=== PATIENT | female | born 2000 | race Caucasian/White ===

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

== ENCOUNTER 2024-06-13 04:31 | Emergency (ER) | payer BC ==
[2024-06-13 04:39] VITALS: TEMP 97.9
--- NOTE | 2024-06-13 04:46 | ED ---
Abdominal Pain HPI <ManiMike - Last Filed: 06/13/24 09:33> - General Source: patient, RN notes reviewed, old records reviewed Mode of arrival: ambulatory Limitations: no limitations - History of Present Illness MD Complaint: abdominal pain -: days(s) Location: diffuse, suprapubic Radiation: suprapubic Migration to: suprapubic Severity: moderate Severity scale (1-10): 6 Quality: sharp Consistency: intermittent Improves With: nothing Worsens With: nothing Associated Symptoms: nausea Treatments Prior to Arrival: other (0) <Miguel Ángel Campbell - Last Filed: 06/23/24 01:53> - General Chief Complaint: Abdominal Pain Stated Complaint: Abdominal Pain Time Seen by Provider: 06/13/24 04:39 - History of Present Illness Initial Comments: This is a 24-year-old female to ER for evaluation of abdominal pain today abdominal pain and constipation (Miguel Ángel Campbell) - Related Data Previous Rx's Medication Instructions Recorded Dicyclomine [Bentyl] 10 mg PO TID PRN 5 Days #15 capsule 06/13/24 Allergies Allergy/AdvReac Type Severity Reaction Status Date / Time No Known Allergies Allergy Verified 06/13/24 04:35 Review of Systems ROS Other: All systems not noted in ROS Statement are negative. <ManiMike - Last Filed: 06/13/24 09:33> ROS Other: All systems not noted in ROS Statement are negative. <Miguel Ángel Campbell - Last Filed: 06/23/24 01:53> ROS Statement: Those systems with pertinent positive or pertinent negative responses have been documented in the HPI. Past Medical History Past Medical History: No Reported History Past Surgical History: No Surgical Hx Reported Past Psychological History: No Psychological Hx Reported Smoking Status: Never smoker Past Alcohol Use History: Occasional Past Drug Use History: None Reported <Miguel Ángel Campbell - Last Filed: 06/23/24 01:53> General Exam Limitations: no limitations General appearance: alert, in no apparent distress Head exam: Present: atraumatic, normocephalic, normal inspection Eye exam: Present: normal appearance, PERRL, EOMI. Absent: scleral icterus, conjunctival injection, periorbital swelling ENT exam: Present: normal exam, mucous membranes moist Neck exam: Present: normal inspection. Absent: tenderness, meningismus, lymphadenopathy Respiratory exam: Present: normal lung sounds bilaterally. Absent: respiratory distress, wheezes, rales, rhonchi, stridor Cardiovascular Exam: Present: regular rate, normal rhythm, normal heart sounds. Absent: systolic murmur, diastolic murmur, rubs, gallop, clicks GI/Abdominal exam: Present: soft, normal bowel sounds. Absent: distended, tenderness, guarding, rebound, rigid Extremities exam: Present: normal inspection, full ROM, normal capillary refill. Absent: tenderness, pedal edema, joint swelling, calf tenderness Back exam: Present: normal inspection Neurological exam: Present: alert, oriented X3, CN II-XII intact Psychiatric exam: Present: normal affect, normal mood Skin exam: Present: warm, dry, intact, normal color. Absent: rash <Miguel Ángel Campbell - Last Filed: 06/23/24 01:53> Course <Miguel Ángel Campbell - Last Filed: 06/23/24 01:53> Vital Signs 06/13/24 06/13/24 06/13/24 04:35 06:15 07:00 Temperature 97.9 F Pulse Rate 98 66 65 Respiratory 18 16 16 Rate Blood Pressure 149/78 125/71 127/66 O2 Sat by Pulse 100 100 100 Oximetry 06/13/24 09:45 Temperature Pulse Rate 64 Respiratory 18 Rate Blood Pressure 128/84 O2 Sat by Pulse 97 Oximetry - Reevaluation(s) Reevaluation #1: 06/13/24 04:46 Medical records reviewed (Miguel Ángel Campbell) Reevaluation #2: Patient symptoms improved here in the ER (Miguel Ángel Campbell) Reevaluation #3: Patient informed of results and questions answered (Miguel Ángel Campbell) Reevaluation #4: Was pt. sent in by a medical professional or institution (, PA, COLLARETTE SEPARATOR, urgent care, hospital, or correction...) When possible be specific @ -no Did you speak to anyone other than the patient for history (EMS, parent, family, police, friend...)? What history was obtained from this source @ -no Did you review nursing and triage notes (agree or disagree)? Why? @ -agree Are old charts reviewed (outside hosp., previous admission, EMS record, old EKG, old radiological studies, urgent care reports/EKG's, correction records)? Report findings @ -yes Differential Diagnosis (chest pain, altered mental status, abdominal pain women, abdominal pain men, vaginal bleeding, weakness, fever, dyspnea, syncope, headache, dizziness, GI bleed, back pain, seizure, CVA, palpatations, mental health, musculoskeletal)? @ -prior EKG interpreted by me (3pts min.). @ -no X-rays interpreted by me (1pt min.). @ -no CT interpreted by me (1pt min.). @ -Yes negative for acute disease U/S interpreted by me (1pt. min.). @ -Yes negative for acute disease What testing was considered but not performed or refused? (CT, X-rays, U/S, labs)? Why? @ -none What meds were considered but not given or refused? Why? @ -none Did you discuss the management of the patient with other professionals (professionals i.e. , PA, COLLARETTE SEPARATOR, lab, RT, psych nurse, social service manager, treating inspector, teacher, information security officer, community case manager)? Give summary @ -no Was smoking cessation discussed for >3mins.? @ -no Was critical care preformed (if so, how long)? @ -no Were there social determinants of health that impacted care today? How? (Homelessness, low income, unemployed, alcoholism, drug addiction, transportation, low edu. Level, literacy, decrease access to med. care, [facility], rehab)? @ -none Was there de-escalation of care discussed even if they declined (Discuss DNR or withdrawal of care, Hospice)? DNR status @ -no What co-morbidities impacted this encounter? (DM, HTN, Smoking, COPD, CAD, Cancer, CVA, ARF, Chemo, Hep., AIDS, mental health diagnosis, sleep apnea, morbid obesity)? @ -none Was patient admitted / discharged? Hospital course, mention meds given and route, prescriptions, significant lab abnormalities, going to OR and other pertinent info. @ - 24 Female to ER for evaluation abdominal pain no acute findings here in the ER can be discharged home Discharge Undiagnosed new problem with uncertain prognosis? @ -no Drug Therapy requiring intensive monitoring for toxicity (Heparin, Nitro, Insulin, Cardizem)? @ -no Were any procedures done? @ -no Diagnosis/symptom? @ -Abdominal pain Acute, or Chronic, or Acute on Chronic? @ -Acute Uncomplicated (without systemic symptoms) or Complicated (systemic symptoms)? @ -Complicated Side effects of treatment? @ -no Exacerbation, Progression, or Severe Exacerbation? @ -exacerbation Poses a threat to life or bodily function? How? (Chest pain, [place], [place], pneumonia, PE, COPD, DKA, ARF, appy, cholecystitis, CVA, Diverticulitis, Homicidal, Suicidal, threat to staff... and all critical care pts) @ -no (Miguel Ángel Campbell) Reevaluation #5: Differential Abdominal Pain Men: Appendicitis, cholecystitis, diverticulosis, ischemic bowel, pancreatitis, hepatitis, UTI, gastroenteritis, AAA, incarcerated hernia, bowel obstruction, constipation, inflammatory bowel, hepatitis, peptic ulcer disease, splenic infarction, perforated viscus, testicular torsion, this is not meant to be an all-inclusive list (Miguel Ángel Campbell) Medical Decision Making - Lab Data Result diagrams: 06/13/24 04:58 06/13/24 04:58 <Mike Singleton - Last Filed: 06/13/24 09:33> - Lab Data Result diagrams: 06/13/24 04:58 06/13/24 04:58 - Radiology Data Radiology results: pending (Ultrasound pelvis), report reviewed (CT of the abdomen pelvis negative for acute disease), image reviewed <Miguel Ángel Campbell - Last Filed: 06/23/24 01:53> - Medical Decision Making Patient signed out to me pending results of ultrasound. Patient presents with upper abdominal discomfort. Laboratory studies unremarkable. This includes negative test and negative urine. Ultrasound of the abdomen including gallbladder unremarkable. Transvaginal ultrasound does reveal an ovarian cyst on the right side with no evidence of torsion no other obvious other changes. Active patient. She is feeling improved. I believe it is reasonable for her to be discharged home this time. She was in agreement this plan. Diagnosis is abdominal pain of unknown etiology. Strict return precautions discussed. I will provide the patient with a prescription for starter pack of Zofran, Bentyl. I instructed the patient to follow up with their PCP in the next 1-3 days. I provided contact information for follow up with gastroenterology. I explained that the patient should return to the emergency department if they experience any worsening symptoms. Strict return precautions were discussed with the patient. The patient expressed understanding of these instructions. I answered all questions that the patient had. The patient was discharged home in good condition with their prescriptions and follow up information. Diagnosis/symptom? @ -Abdominal pain of unknown etiology Acute, or Chronic, or Acute on Chronic? @ -Acute Uncomplicated (without systemic symptoms) or Complicated (systemic symptoms)? @ -Uncomplicated Side effects of treatment? @ -None Exacerbation, Progression, or Severe Exacerbation] @ -No Poses a threat to life or bodily function? @ -Unlikely (Mike Singleton) 24 Female to ER for evaluation abdominal pain no acute findings here in the ER can be discharged home (Miguel Ángel Campbell) - Lab Data Lab Results 06/13/24 06/13/24 06/13/24 Range/Units 04:58 04:58 06:10 WBC 8.3 (3.8-10.6) k/uL RBC 4.64 (3.80-5.40) m/uL Hgb 14.3 (11.4-16.0) gm/dL Hct 43.4 (34.0-46.0) % MCV 93.5 (80.0-100.0) fL MCH 30.9 (25.0-35.0) pg MCHC 33.0 (31.0-37.0) g/dL RDW 13.2 (11.5-15.5) % Plt Count 239 (150-450) k/uL MPV 7.7 Neutrophils % 61 % Lymphocytes % 30 % Monocytes % 5 % Eosinophils % 2 % Basophils % 0 % Neutrophils # 5.1 (1.3-7.7) k/uL Lymphocytes # 2.5 (1.0-4.8) k/uL Monocytes # 0.4 (0-1.0) k/uL Eosinophils # 0.2 (0-0.7) k/uL Basophils # 0.0 (0-0.2) k/uL Sodium 133 L (137-145) mmol/L Potassium 3.9 (3.5-5.1) mmol/L Chloride 104 (98-107) mmol/L Carbon Dioxide 22 (22-30) mmol/L Anion Gap 7 mmol/L BUN 13 (7-17) mg/dL Creatinine 0.81 (0.52-1.04) mg/dL Est GFR (CKD-EPI)AfAm >90 (>60 ml/min/1.73 sqM) Est GFR (CKD-EPI)NonAf >90 (>60 ml/min/1.73 sqM) Glucose 101 H (74-99) mg/dL Calcium 9.5 (8.4-10.2) mg/dL Phosphorus 4.2 (2.5-4.5) mg/dL Magnesium 1.8 (1.6-2.3) mg/dL Total Bilirubin 0.7 (0.2-1.3) mg/dL AST 22 (14-36) U/L ALT 17 (4-34) U/L Alkaline Phosphatase 58 (38-126) U/L Total Protein 6.9 (6.3-8.2) g/dL Albumin 4.4 (3.5-5.0) g/dL Amylase 46 (30-110) U/L Lipase 96 (23-300) U/L Urine Color Urine Appearance (Clear) Urine pH (5.0-8.0) Ur Specific Collison (1.001-1.035) Urine Protein (Negative) Urine Glucose (UA) (Negative) Urine Ketones (Negative) Urine Blood (Negative) Urine Nitrite (Negative) Urine Bilirubin (Negative) Urine Urobilinogen (<2.0) mg/dL Ur Leukocyte Esterase (Negative) Urine HCG, Qual Not Detected (Not Detectd) 06/13/24 Range/Units 06:14 WBC (3.8-10.6) k/uL RBC (3.80-5.40) m/uL Hgb (11.4-16.0) gm/dL Hct (34.0-46.0) % MCV (80.0-100.0) fL MCH (25.0-35.0) pg MCHC (31.0-37.0) g/dL RDW (11.5-15.5) % Plt Count (150-450) k/uL MPV Neutrophils % % Lymphocytes % % Monocytes % % Eosinophils % % Basophils % % Neutrophils # (1.3-7.7) k/uL Lymphocytes # (1.0-4.8) k/uL Monocytes # (0-1.0) k/uL Eosinophils # (0-0.7) k/uL Basophils # (0-0.2) k/uL Sodium (137-145) mmol/L Potassium (3.5-5.1) mmol/L Chloride (98-107) mmol/L Carbon Dioxide (22-30) mmol/L Anion Gap mmol/L BUN (7-17) mg/dL Creatinine (0.52-1.04) mg/dL Est GFR (CKD-EPI)AfAm (>60 ml/min/1.73 sqM) Est GFR (CKD-EPI)NonAf (>60 ml/min/1.73 sqM) Glucose (74-99) mg/dL Calcium (8.4-10.2) mg/dL Phosphorus (2.5-4.5) mg/dL Magnesium (1.6-2.3) mg/dL Total Bilirubin (0.2-1.3) mg/dL AST (14-36) U/L ALT (4-34) U/L Alkaline Phosphatase (38-126) U/L Total Protein (6.3-8.2) g/dL Albumin (3.5-5.0) g/dL Amylase (30-110) U/L Lipase (23-300) U/L Urine Color Colorless Urine Appearance Clear (Clear) Urine pH 6.0 (5.0-8.0) Ur Specific Collison 1.006 (1.001-1.035) Urine Protein Negative (Negative) Urine Glucose (UA) Negative (Negative) Urine Ketones Negative (Negative) Urine Blood Negative (Negative) Urine Nitrite Negative (Negative) Urine Bilirubin Negative (Negative) Urine Urobilinogen <2.0 (<2.0) mg/dL Ur Leukocyte Esterase Negative (Negative) Urine HCG, Qual (Not Detectd) Disposition Is patient prescribed a controlled substance at d/c from ED?: No Time of Disposition: 09:30 <iMke Singleton - Last Filed: 06/13/24 09:33> <Miguel Ángel Campbell - Last Filed: 06/23/24 01:53> Clinical Impression: Abdominal pain of unknown etiology Disposition: HOME SELF-CARE Condition: Good Instructions (If sedation given, give patient instructions): Abdominal Pain (ED) Prescriptions: Dicyclomine [Bentyl] 10 mg PO TID PRN 5 Days #15 capsule PRN Reason: Pain Referrals: Glapinski,Bean, DO [Primary Care Provider] - 1-2 days Angela Mcclain MD [STAFF PHYSICIAN] - 1-2 days
[2024-06-13] MEDS: SODIUM CHLORIDE 0.9% 1,000 ML IV STA (05:15)
[2024-06-13 05:23] LABS: Basophils % (A) 0 %; Eosinophils # (A) 0.2 k/uL (0-0.7); Eosinophils % (A) 2 %; HCT 43.4 % (34.0-46.0); HGB 14.3 gm/dL (11.4-16.0); Lymphocytes # (A) 2.5 k/uL (1.0-4.8); Lymphocytes % (A) 30 %; MCH 30.9 pg (25.0-35.0); MCV 93.5 fL (80.0-100.0); Mean Platelet Volume 7.7; Monocytes # (A) 0.4 k/uL (0-1.0); Monocytes % (A) 5 %; Neutrophils # (A) 5.1 k/uL (1.3-7.7); Neutrophils % (A) 61 %; Platelet Count 239 k/uL (150-450); RBC 4.64 m/uL (3.80-5.40); RDW 13.2 % (11.5-15.5); WBC 8.3 k/uL (3.8-10.6)
[2024-06-13 05:33] LABS: ALT 17 U/L (4-34); AST 22 U/L (14-36); African American GFR (CKD) >90 (>60 ml/min/1.73 sqM); Albumin 4.4 g/dL (3.5-5.0); Alkaline Phosphatase 58 U/L (38-126); Amylase 46 U/L (30-110); Anion Gap 7 mmol/L; Blood Urea Nitrogen 13 mg/dL (7-17); Calcium 9.5 mg/dL (8.4-10.2); Carbon Dioxide 22 mmol/L (22-30); Chloride 104 mmol/L (98-107); Glucose 101 mg/dL (74-99); Lipase 96 U/L (23-300); Magnesium 1.8 mg/dL (1.6-2.3); Non-African American GFR(CKD) >90 (>60 ml/min/1.73 sqM); Phosphorus 4.2 mg/dL (2.5-4.5); Potassium 3.9 mmol/L (3.5-5.1); Sodium 133 mmol/L (137-145); Total Bilirubin 0.7 mg/dL (0.2-1.3); Total Protein 6.9 g/dL (6.3-8.2)
[2024-06-13 06:24] LABS: Appearance,Urine Clear (Clear); Bilirubin,Urine Negative (Negative); Blood,Urine Negative (Negative); Color,Urine Colorless; Glucose,Urine (UA) Negative (Negative); Ketones,Urine Negative (Negative); Leukocyte Esterase,Urine Negative (Negative); Nitrite,Urine Negative (Negative); Protein,Urine Negative (Negative); Specific Gravity,Urine 1.006 (1.001-1.035); Urobilinogen,Urine <2.0 mg/dL (<2.0)
[2024-06-13] MEDS: ONDANSETRON 4 MG/2 ML VIAL IVP STA (06:58)
[2024-06-13] MEDS: MORPHINE SULFATE 4 MG/ML SYRINGE IVP STA (06:58)
[2024-06-13] MEDS: KETOROLAC 15 MG/ML 1 ML VIAL IVP STA (06:59)
--- NOTE | 2024-06-13 09:10 | US ---
EXAMINATION TYPE: US abdomen complete DATE OF EXAM: 06/13/2024 COMPARISON: 12/16/2016 CLINICAL INDICATION: Female, 24 years old with history of abdominal pain TECHNIQUE: Multiple sonographic images of the abdomen are obtained. FINDINGS: EXAM MEASUREMENTS: Liver Length: 16.8 cm Gallbladder Wall: 0.23 cm CBD: Obscured Spleen: 9.8 cm Right Kidney: 12.0 x 6.6 x 4.4 cm Left Kidney: 12.7 x 5.3 x 3.9 cm SUBSTITUTE CROSSING GUARD NOTES: Exam is limited due to gas. Pancreas: Only the pancreatic head and neck is seen. Body and tail obscured by bowel gas shadowing. Liver: Slightly coarsened echotexture may be on a technical basis. No focal lesion. Gallbladder: Appears anechoic. Evidence for sonographic Chowdhury's sign: No CBD: Obscured Spleen: wnl Right Kidney: No hydronephrosis or masses seen Left Kidney: No hydronephrosis or masses seen Upper IVC: Appears wnl Abd Aorta: Proximal segment appears wnl. Mid and distal segments and iliacs were obscured. IMPRESSION: 1. Suboptimal visualization of most of the pancreas as well as the mid and distal abdominal aorta. Th e bile duct is also obscured and cannot be evaluated. 2. No gallstones or other specific abnormality seen.
--- NOTE | 2024-06-13 09:15 | US ---
EXAMINATION TYPE: US transvaginal plus Doppler DATE OF EXAM: 06/13/2024 COMPARISON: NONE CLINICAL INDICATION: Female, 24 years old with history of pain; Pain, more on the left side. LMP unkn own. G0. TECHNIQUE: Transvaginal (TV). Color Doppler and spectral waveform analysis of the ovarian arteries and veins. Date of LMP: Unknown per patient. EXAM MEASUREMENTS: Uterus: 5.8 x 5.2 x 2.9 cm Endometrial Stripe: 0.24 cm Right Ovary: 3.4 x 2.4 x 2.1 cm Left Ovary: 3.4 x 2.4 x 2.7 cm 1. Uterus: Anteverted *trace sliver of fluid seen seen in the cervix: 1.6 x 0.7 x 0.3 cm. *Tiny 3 mm echogenic focus at the cervix could reflect sequela of prior infection or instrumentation. 2. Endometrium: 0.24 cm. 3. Right Ovary: Follicles seen. 4. Left Ovary: Anechoic area seen within: 2.5 x 2.2 x 2.1 cm. Spectral, color and waveform doppler imaging shows arterial and venous flow within the ovaries. 5. Bilateral Adnexa: Appear wnl 6. Posterior cul-de-sac: Appears wnl IMPRESSION: 1. Nonspecific trace fluid within the endocervical canal. A 3 mm calcification in the cervix could re flect sequela of prior infection or instrumentation. 2. Follicular change in the right ovary. A 2.5 cm dominant follicle or functional cyst of the left ov estela. 3. No sonographic evidence for ovarian torsion.
[2024-06-13] MEDS: ONDANSETRON 4 MG ODT STARTER PACK 2 TAB BTL PO STA (09:44)
[2024-06-13 09:46] VITALS: BP 128/84; PULSE 64; RESP 18
== END 2024-06-13 09:46 | disposition home or self-care (01) ==
LOC: EC 04:31
DX: N83.202 Unspecified ovarian cyst, left side (principal)
CPT/HCPCS: 99284 ×2; 96374 ×2; 96375 ×3; 96361 ×2; 36415; 80053; 82150; 83690; 83735; 84100; 85025; 81003; 81025; 93975; 76700; 76830; J2270; J2405; J1885; S0119